=== PATIENT | female | born 1995 ===

== ENCOUNTER → 2021-02-02 | Outpatient (REF) | payer OTHER | LOC: M LAB REF 19:00 | PROVIDERS: ATTEND Physician Assistant | DX: R05.9 Cough, unspecified (principal) ==

== ENCOUNTER 2021-10-05 14:00 | Outpatient (CLI) | payer OTHER ==
[~2021-10-05] VITALS: Ht 165.1 cm; Wt 77.6 kg
[2021-10-05 14:26] VITALS: BP 144/85
[2021-10-05] MEDS ORDERED: PRENTAB9 PO (14:42)
[2021-10-05] MEDS ORDERED: HOME MED LIST COMPLETE! XX SCH (14:55)
[2021-10-05 15:10] VITALS: BP 137/78
== END 2021-10-05 15:15 | disposition home or self-care (01) ==
LOC: M LDO 14:00
PROVIDERS: ATTEND Obstetrics & Gynecology
CPT/HCPCS: 59025; G0463

== ENCOUNTER 2021-10-09 14:45 | Inpatient (IN) | payer OTHER ==
[2021-10-09] VITALS (26 sets, daily range): BP systolic 95–165; BP diastolic 52–95
[~2021-10-09] VITALS: Ht 165.1 cm; Wt 78.3 kg
[~2021-10-09 14:45] MED LIST: PRENTAB9 PO
[2021-10-09] MEDS ORDERED: HOME MED LIST COMPLETE! XX SCH (15:10)
[2021-10-09] MEDS ORDERED: LACTATED RINGER'S 1000 ML IV STA (15:51)
[2021-10-09] MEDS ORDERED: PENICILLIN G POTASSIUM IV 5 MU in D5W MINI-BAG PLUS 100 ML IV STA (15:51)
[2021-10-09] MEDS ORDERED: METHYLERGONOVINE MALEATE 0.2 MG/ML VIAL (J2210) IM PRN (15:55)
[2021-10-09] MEDS ORDERED: LIDOCAINE 1% MDV 20ML VIAL INFIL PRN (15:55)
[2021-10-09] MEDS ORDERED: OXYTOCIN DRIP 30 UNITS in IV 1 EA IV PRN (15:55)
[2021-10-09] MEDS ORDERED: LR 1,000 ML IV SCH (15:55)
[2021-10-09] MEDS ORDERED: ONDANSETRON 4MG/2ML VIAL IV ONE (16:35)
[2021-10-09 16:39] LABS: HEMATOCRIT 36.7 % (36.0-47.0); HEMOGLOBIN 12.3 g/dl (12.0-15.5); MEAN CORPUSCULAR HEMOGLOBIN 30.2 pg (27.0-33.0); MEAN CORPUSCULAR HGB CONC 33.5 g/dl (32.0-36.5); MEAN CORPUSCULAR VOLUME 90.2 fl (80.0-96.0); PLATELET COUNT, AUTOMATED 299 10^3/uL (150-450); RED BLOOD COUNT 4.07 10^6/uL (4.00-5.40); WHITE BLOOD COUNT 11.4 10^3/uL (4.0-10.0)
[2021-10-09] MEDS ORDERED: FENTANYL 2MCG/ML ROPIVACAINE 0.2% IN 0.9% NACL 100ML IVBAG As Ordered ONE (16:52)
[2021-10-09] MEDS ORDERED: EPIDURAL/PCA KEYS XX PRN (17:55)
[2021-10-09] MEDS ORDERED: ONDANSETRON 4MG/2ML VIAL IV PRN (17:55)
[2021-10-09] MEDS ORDERED: ePHEDrine SULFATE 25 MG/5 ML(5MG/ML) SYRINGE IVP PRN (17:55)
[2021-10-09] MEDS ORDERED: diphenhydrAMINE 50MG/ML VIAL (J1200) IV PRN (17:55)
[2021-10-09] MEDS ORDERED: FENTANYL/ROPIVACAINE/NACL BAG 100 ML EPIDURAL SCH (17:55)
[2021-10-09] MEDS ORDERED: NALOXONE INJ 0.4MG/1ML VIAL (J2310 PER 1MG) IV PRN (17:55)
[2021-10-09] MEDS ORDERED: LR 500 ML IV PRN (17:55)
[2021-10-09] MEDS ORDERED: METHYLERGONOVINE MALEATE 0.2 MG TAB PO PRN (19:30)
[2021-10-09] MEDS ORDERED: DIBUCAINE 1% OINTMENT 30GM TOP PRN (19:30)
[2021-10-09] MEDS ORDERED: RHOGAM 300 MCG (1500 IU) INJ (J2790) IM SCH (19:30)
[2021-10-09] MEDS ORDERED: DOCUSATE SODIUM 100MG CAPSULE PO PRN (19:30)
[2021-10-09] MEDS: PENICILLIN G POTASSIUM IV 2.5 MU in IV 1 EA IV SCH (20:30)
[2021-10-09] MEDS: IBUPROFEN 800 MG TAB PO PRN (22:08)
[2021-10-10] MEDS: PENICILLIN G POTASSIUM IV 2.5 MU in IV 1 EA IV SCH (00:30)
[2021-10-10] MEDS: ACETAMINOPHEN TAB 650MG DOSE (2X325MG) PO PRN ×2 (03:19→17:55)
[2021-10-10 06:06] VITALS: BP 139/86
[2021-10-10] MEDS: IBUPROFEN 800 MG TAB PO PRN ×2 (08:52→22:52)
[2021-10-10] MEDS: PRENATAL VITAMINS CHEWABLE TABLET PO SCH (08:53)
[2021-10-10 18:00] VITALS: BP 102/58
[2021-10-11 06:00] VITALS: BP 119/79
[2021-10-11] MEDS: ACETAMINOPHEN TAB 650MG DOSE (2X325MG) PO PRN (08:10)
[2021-10-11] MEDS: PRENATAL VITAMINS CHEWABLE TABLET PO SCH (08:10)
[2021-10-11] MEDS ORDERED: MEASLES,MUMPS,RUBELLA VACCINE INJ (MMR-II) (90707) SC ONE (09:00)
[2021-10-11 18:18] VITALS: BP 130/79
== END 2021-10-11 20:30 | disposition home or self-care (01) | DRG 807 ==
LOC: M LDO 14:45 → M LDI 15:59 → M OBS 20:35
PROVIDERS: ADMIT Advanced Practice Midwife; ATTEND Advanced Practice Midwife
PROC: 10E0XZZ Delivery of Products of Conception, External Approach (ICD-10-PCS; principal; 2021-10-09)
PROC: 0KQM0ZZ Repair Perineum Muscle, Open Approach (ICD-10-PCS; 2021-10-09)
DX: O48.0 Post-term pregnancy (principal); Z37.0 Single live birth; Z3A.40 40 weeks gestation of pregnancy; O99.824 Streptococcus B carrier state complicating childbirth; O32.6XX0 Maternal care for compound presentation, not applicable or unspecified; O70.1 Second degree perineal laceration during delivery